=== PATIENT | male | born 1995 ===

== ENCOUNTER → 2016-03-25 | Outpatient (CLI) | payer OTHER ==
--- NOTE | 2016-03-25 14:33 | DIAGNOSTIC IMAGING REPORT ---
RIGHT ELBOW 3 VIEWS CLINICAL HISTORY: Fall with right elbow pain. FINDINGS: 3 views of the right elbow are obtained. No prior studies are available for comparison at the time of dictation. The skeletal structures are well mineralized. There is a nondistracted fracture of the radial head with associated joint effusion. No additional fracture is seen. The joint spaces are maintained. The overlying soft tissues are within normal limits. IMPRESSION: Nondistracted radial head fracture with associated joint effusion. Electronically signed by: Jesús Dang M.D. 03/25/2016 2:32 PM Dictated Date/Time: 03/25/2016 2:31 PM
== END | disposition home or self-care (01) ==
LOC: C.RDSM 13:30
PROVIDERS: ATTEND Physician Assistant
DX: S52.124A Nondisplaced fracture of head of right radius, initial encounter for closed fracture (principal); X58.XXXA Exposure to other specified factors, initial encounter